=== PATIENT | male | born 1930 | race Caucasian/White ===

== ENCOUNTER 2017-01-29 10:32 | Inpatient (IN) | payer MEDICARE, OTHER ==
[2017-01-29] VITALS (396 sets, daily range): BP systolic 121–154; BP diastolic 70–82; PULSE 78–84; TEMP 97–97.6; O2SAT 84–100
[~2017-01-29] VITALS: Ht 185.4 cm; Wt 91.7 kg
[~2017-01-29 10:32] MED LIST: ASPI325T6 PO; ASPIRIN E.C. 8181 MG PO; BIAXIN 500MG T500 MG PO; BIAXIN FILMTAB500 MG PO; BRILINTA90 MG PO; CATAPRES 0.1MG0.1 MG PO; CLEOCIN HC150 MG/CAP PO; COMBIVENT INH14.7 GM IH; CORDARONE200 MG/TAB PO; DOXYCYCLINE 10100 MG PO; LIPITOR 40MG TA40 MG PO; LIPITOR 80MG80 MG PO; LISINOPRIL30 MG PO; LOPRESSOR 225 MG/TAB PO; NEXIUM 40MG40 MG PO; NEXIUM PO; NEXIUM40 MG PO; PREDNISONE20 MG PO; RT ADVAIR 128 DISKUS IH; RT SPIRIVA18 MCG IH; SINGULAIR; SINGULAIR 110 MG/TAB PO; SINGULAIR10 MG PO; SPIRIVA INH IH; THEODUR 300MG PO; ULTRAM 50MG TAB50 MG PO; [UNRECOGNIZED DRUG - OTHER]
[2017-01-29] MEDS ORDERED: ASPIRIN E.C. 8181 MG PO (10:52)
[2017-01-29] MEDS ORDERED: IPRATROPIUM BROM3 M1 IH (10:53)
[2017-01-29] MEDS ORDERED: PULMICORT0.5 MG/2 M IH (10:53)
[2017-01-29] MEDS ORDERED: PROTONIX 40MG T40 MG PO (10:54)
[2017-01-29] MEDS ORDERED: PREDNISONE20 MG PO (10:54)
[2017-01-29] MEDS ORDERED: NORVASC 10MG10 MG PO (10:55)
[2017-01-29 11:49] LABS: ARTERIAL BLD GAS O2 SATURATION 91.2 % (92-100); ARTERIAL BLOOD GAS BASE EXCESS 8.5 (-2-2); ARTERIAL BLOOD GAS HCO3 38.3 meq/L (22-26); ARTERIAL BLOOD GAS PHT 7.27 C (7.35-7.45); ARTERIAL BLOOD GAS PO2 68.4 mmHg (80-100); ARTERIAL BLOOD GAS PO2T 68.4 (80-100); ARTERIAL BLOOD GAS pH 7.27 (7.35-7.45); OXYHEMOGLOBIN 90.2 %
[2017-01-29 11:51] LABS: ATS? YES
[2017-01-29 13:54] LABS: PH 5 (5-8); SQUAMOUS EPITHELIAL None Seen /hpf; URINE APPEARANCE Clear; URINE BACTERIA None Seen /hpf; URINE BILIRUBIN Negative (NEGATIVE); URINE BLOOD Negative (NEGATIVE); URINE COLOR Yellow; URINE GLUCOSE Negative (NEGATIVE); URINE KETONE Negative (NEGATIVE); URINE RBC 0-2 /hpf; URINE UROBILINOGEN Negative (NEGATIVE); URINE WBC 0-2 /hpf
[2017-01-29 14:11] LABS: BASO % 0.1 % (0.0-2.0); EOS # 0.1 (0.0-0.7); EOS % 0.6 % (0-4.0); GRAN # 7.4 (1.4-6.5); GRAN % 89.4 % (42.2-75.2); LYMPH # 0.4 (1.2-3.4); LYMPH % 4.5 % (20.0-51.0); MEAN CELL VOLUME 102 fl (80.0-100.0); MEAN CORPUSCULAR HGB CONC 30 g/dl (33.0-37.0); MEAN PLATELET VOLUME 10.5 fl (7.4-10.4); MONO # 0.4 (0.1-0.6); MONO % 4.6 % (1.7-9.3); PLATELET COUNT 179 K/mm3 (130-400); RED BLOOD COUNT 3.53 M/mm3 (4.20-5.60); REDCELL DISTRIBUTION WIDTH-CV 14.5 % (11.5-14.5); WHITE BLOOD COUNT 8.3 K/mm3 (4.8-10.8)
[2017-01-29 14:12] LABS: HEMOGLOBIN 10.9 g/dl (13.5-18.0); MEAN CORPUSCULAR HEMOGLOBIN 31 pg (27.0-31.0)
[2017-01-29 14:17] LABS: PROTHROMBIN TIME 10.9 SECONDS (9.7-12.8)
[2017-01-29 14:20] LABS: ADJUSTED CALCIUM 8.9 mg/dL (8.4-10.2); ALBUMIN 3.2 gm/dL (3.5-5.0); BILIRUBIN,TOTAL 0.6 mg/dL (0.0-1.0); CALCIUM 8.3 mg/dL (8.4-10.2); CREATININE, serum 0.82 mg/dL (0.66-1.25); PARTIAL THROMBOPLASTIN TIME 27.7 SECONDS (26.0-37.0); POTASSIUM 4.6 mmol/L (3.4-5.0); TOTAL PROTEIN 6.1 gm/dL (6.4-8.2)
[2017-01-29 14:31] LABS: TROPONIN-I 0.015 ng/mL (0.000-0.034)
[2017-01-29] MEDS ORDERED: ULTRAM 50MG TAB50 MG PO ×2 (16:17→17:39)
[2017-01-29] MEDS ORDERED: SINGULAIR 110 MG/TAB PO ×2 (16:18→17:48)
[2017-01-29] MEDS ORDERED: PACERONE100 MG PO ×2 (16:18→17:49)
[2017-01-29] MEDS ORDERED: ZIAC 5/6.25MG T1 TAB PO ×2 (16:19→17:48)
[2017-01-29] MEDS ORDERED: LIPITOR 80MG80 MG PO ×2 (16:20→17:40)
[2017-01-29] MEDS ORDERED: ADVIL200 MG PO (16:40)
[2017-01-29] MEDS ORDERED: PACERONE200 MG PO (18:32)
[2017-01-29 18:54] LABS: CALCIUM 8.2 mg/dL (8.4-10.2); CREATININE, serum 0.84 mg/dL (0.66-1.25); POTASSIUM 4.1 mmol/L (3.4-5.0)
[2017-01-29 19:44] LABS: ARTERIAL BLD GAS O2 SATURATION 91.9 % (92-100); ARTERIAL BLD GAS TCO2 CT 45.3; ARTERIAL BLOOD GAS BASE EXCESS 14.1 (-2-2); ARTERIAL BLOOD GAS HCO3 42.9 meq/L (22-26); ARTERIAL BLOOD GAS PO2 65.7 mmHg (80-100); ARTERIAL BLOOD GAS pH 7.36 (7.35-7.45); OXYHEMOGLOBIN 90.7 %
[2017-01-29 19:45] LABS: ABG VENTILATOR TIDAL VOLUME 561 mL; ALLEN TEST YES; ALLENS TEST RESULT PASS; ATS? YES
[2017-01-30] VITALS (1107 sets, daily range): BP systolic 103–132; BP diastolic 51–73; PULSE 81–92; TEMP 97.3–99.6; O2SAT 57–100
[2017-01-30 03:25] LABS: MEAN CELL VOLUME 99 fl (80.0-100.0); MEAN CORPUSCULAR HGB CONC 32 g/dl (33.0-37.0); MEAN PLATELET VOLUME 10.3 fl (7.4-10.4); PLATELET COUNT 176 K/mm3 (130-400); RED BLOOD COUNT 3.65 M/mm3 (4.20-5.60); REDCELL DISTRIBUTION WIDTH-CV 13.9 % (11.5-14.5); WHITE BLOOD COUNT 7.1 K/mm3 (4.8-10.8)
[2017-01-30 03:29] LABS: HEMOGLOBIN 11.4 g/dl (13.5-18.0); MEAN CORPUSCULAR HEMOGLOBIN 31 pg (27.0-31.0)
[2017-01-30 03:39] LABS: CALCIUM 8.1 mg/dL (8.4-10.2); CREATININE, serum 0.92 mg/dL (0.66-1.25); POTASSIUM 3.6 mmol/L (3.4-5.0)
[2017-01-30 04:45] LABS: ARTERIAL BLD GAS O2 SATURATION 90.6 % (92-100); ARTERIAL BLD GAS TCO2 CT 43.5; ARTERIAL BLOOD GAS BASE EXCESS 15.5 (-2-2); ARTERIAL BLOOD GAS HCO3 41.7 meq/L (22-26); ARTERIAL BLOOD GAS pH 7.48 (7.35-7.45); OXYHEMOGLOBIN 89.4 %
[2017-01-30 04:46] LABS: ALLEN TEST YES; ALLENS TEST RESULT PASS; ATS? YES
[2017-01-30 04:47] LABS: ABG VENTILATOR TIDAL VOLUME 580 mL
[2017-01-30 18:29] LABS: BLOOD UREA NITROGEN 28 mg/dL (9-20); CALCIUM 8.5 mg/dL (8.4-10.2); CHLORIDE 91 mmol/L (98-107); CREATININE, serum 1.33 mg/dL (0.66-1.25); GLUCOSE 127 mg/dL (74-106); POTASSIUM 3.8 mmol/L (3.4-5.0); SODIUM 137 mmol/L (137-145)
[2017-01-30 18:49] LABS: CARBON DIOXIDE 39 mmol/L (22-30)
[2017-01-31] VITALS (113 sets, daily range): BP systolic 88–135; BP diastolic 50–68; PULSE 74–84; TEMP 96.9–98.6; O2SAT 86–100
[2017-01-31 04:59] LABS: MEAN CELL VOLUME 97 fl (80.0-100.0); MEAN CORPUSCULAR HGB CONC 32 g/dl (33.0-37.0); MEAN PLATELET VOLUME 10.5 fl (7.4-10.4); PLATELET COUNT 179 K/mm3 (130-400); RED BLOOD COUNT 3.52 M/mm3 (4.20-5.60); REDCELL DISTRIBUTION WIDTH-CV 14.5 % (11.5-14.5); WHITE BLOOD COUNT 13.7 K/mm3 (4.8-10.8)
[2017-01-31 05:03] LABS: HEMATOCRIT 34.2 % (42.0-52.0); HEMOGLOBIN 10.9 g/dl (13.5-18.0); MEAN CORPUSCULAR HEMOGLOBIN 31 pg (27.0-31.0)
[2017-01-31 05:10] LABS: CALCIUM 8.3 mg/dL (8.4-10.2); CREATININE, serum 1.32 mg/dL (0.66-1.25); MAGNESIUM 2.1 mg/dL (1.6-2.3); PHOSPHOROUS 3.6 mg/dL (2.5-4.5); POTASSIUM 3.8 mmol/L (3.4-5.0)
[2017-01-31 10:02] LABS: ARTERIAL BLD GAS O2 SATURATION 88.6 % (92-100); ARTERIAL BLD GAS TCO2 CT 36.7; ARTERIAL BLOOD GAS BASE EXCESS 7.3 (-2-2); ARTERIAL BLOOD GAS HCO3 34.8 meq/L (22-26); ARTERIAL BLOOD GAS PO2 59.7 mmHg (80-100); ARTERIAL BLOOD GAS pH 7.36 (7.35-7.45); OXYHEMOGLOBIN 87.8 %
[2017-01-31 10:03] LABS: ALLEN TEST YES; ALLENS TEST RESULT PASS; ATS? YES
[2017-02-01 00:45] VITALS: BP 110/57; PULSE 76
[2017-02-01 04:11] VITALS: BP 106/59; PULSE 107; TEMP 98.5
[2017-02-01 08:21] VITALS: BP 111/51; PULSE 86; TEMP 98.4
[2017-02-01 08:21] LABS: CALCIUM 8.1 mg/dL (8.4-10.2); CREATININE, serum 1.23 mg/dL (0.66-1.25); POTASSIUM 4.1 mmol/L (3.4-5.0)
[2017-02-01 10:15] LABS: BASO % 0.1 % (0.0-2.0); GRAN # 12.5 (1.4-6.5); GRAN % 85.7 % (42.2-75.2); HEMOGLOBIN 11.1 g/dl (13.5-18.0); LYMPH # 0.5 (1.2-3.4); LYMPH % 3.2 % (20.0-51.0); MEAN CELL VOLUME 100 fl (80.0-100.0); MEAN CORPUSCULAR HEMOGLOBIN 31 pg (27.0-31.0); MEAN CORPUSCULAR HGB CONC 31 g/dl (33.0-37.0); MONO # 1.5 (0.1-0.6); MONO % 10.2 % (1.7-9.3); PLATELET COUNT 199 K/mm3 (130-400); RED BLOOD COUNT 3.54 M/mm3 (4.20-5.60); REDCELL DISTRIBUTION WIDTH-CV 14.5 % (11.5-14.5); WHITE BLOOD COUNT 14.6 K/mm3 (4.8-10.8)
[2017-02-01 10:16] LABS: HEMATOCRIT 35.4 % (42.0-52.0)
[2017-02-01 12:44] VITALS: BP 107/62; PULSE 87; TEMP 98.7
[2017-02-01 16:22] VITALS: BP 127/58; PULSE 90; TEMP 98.2
[2017-02-01 19:56] VITALS: BP 119/62; PULSE 89; TEMP 98.2
[2017-02-02 00:23] VITALS: BP 128/67; PULSE 83; TEMP 97.9
[2017-02-02 06:04] LABS: ARTERIAL BLD GAS TCO2 CT 36.7; ARTERIAL BLOOD GAS BASE EXCESS 8.7 (-2-2); ARTERIAL BLOOD GAS HCO3 34.9 meq/L (22-26); ARTERIAL BLOOD GAS PHT 7.43 C (7.35-7.45); ARTERIAL BLOOD GAS PO2 87.9 mmHg (80-100); ARTERIAL BLOOD GAS PO2T 82.5 (80-100); ARTERIAL BLOOD GAS pH 7.41 (7.35-7.45); OXYHEMOGLOBIN 95.4 %
[2017-02-02 06:07] LABS: ALLEN TEST YES; ALLENS TEST RESULT PASS; ATS? YES
[2017-02-02 07:52] VITALS: BP 101/73; PULSE 73; TEMP 98.7
[2017-02-02 08:20] LABS: CALCIUM 8.1 mg/dL (8.4-10.2); CREATININE, serum 1.01 mg/dL (0.66-1.25); MAGNESIUM 2.2 mg/dL (1.6-2.3); PHOSPHOROUS 2.5 mg/dL (2.5-4.5); POTASSIUM 4.6 mmol/L (3.4-5.0)
[2017-02-02 11:40] VITALS: BP 125/56; PULSE 86; TEMP 98.3
[2017-02-02 15:57] VITALS: BP 110/55; PULSE 84; TEMP 98
[2017-02-02] MEDS ORDERED: PERFOROMIS20 MCG/2 M IH (17:23)
[2017-02-02] MEDS ORDERED: MAG-OX 400400 MG/TAB PO (17:24)
[2017-02-02] MEDS ORDERED: K-TAB20 PO (17:25)
[2017-02-02] MEDS ORDERED: ZEBETA 5MG5 MG PO (17:27)
[2017-02-02] MEDS ORDERED: PREDNISONE20 MG PO (17:27)
== END 2017-02-02 18:54 | disposition home or self-care (01) | DRG 291 ==
LOC: COL.ER 10:32 → ICU 14:42 → MEDICAL 01-31 15:57
PROVIDERS: Emergency Medicine; Internal Medicine Cardiovascular Disease; Internal Medicine Pulmonary Disease; Physician Assistant
PROC: 02HV33Z Insertion of Infusion Device into Superior Vena Cava, Percutaneous Approach (ICD-10-PCS; principal; 2017-01-29)
DX: I50.33 Acute on chronic diastolic (congestive) heart failure (principal); J96.21 Acute and chronic respiratory failure with hypoxia; J44.1 Chronic obstructive pulmonary disease with (acute) exacerbation; N17.9 Acute kidney failure, unspecified; I25.2 Old myocardial infarction; Z87.891 Personal history of nicotine dependence; Z99.81 Dependence on supplemental oxygen
CPT/HCPCS: 99223-AI; 99232-AI; 99233-AI; 99239; C1751; C9113; J1630; J1644; J1650; J1940; J1956; J2060; J2543; J2930; J3475; J3480; J7050; J7512